=== PATIENT | male | born 1995 | race Caucasian/White ===

== ENCOUNTER 2017-11-02 22:55 | Emergency (ER) | payer SELFPAY ==
[2017-11-02 23:03] VITALS: RESP 20
--- NOTE | 2017-11-02 23:45 | C.PDOC ---
Time Seen by Provider: 11/02/17 23:01 Chief Complaint (Nursing): Substance Abuse History Per: Patient, EMS History/Exam Limitations: intoxication Onset/Duration Of Symptoms: Unknown Current Symptoms Are (Timing): Still Present Suicide/Self Injury Attempted (Context): None Modifying Factor(s): Other (PCP) Severity: Moderate Associated Symptoms: Agitation. denies: Suicidal Thoughts, Suicidal Plan Additional History Per: Prior Records, Law Enforcement Past Medical History Reviewed: Historical Data, Nursing Documentation, Vital Signs Vital Signs: Last Vital Signs Temp 98.5 F 11/02/17 23:02 Pulse 105 H 11/02/17 23:02 Resp 20 11/02/17 23:02 BP 112/73 11/02/17 23:02 Pulse Ox 96 11/02/17 23:02 - Medical History PMH: No Chronic Diseases Family History: States: Unknown Family Hx - Social History Hx Alcohol Use: No Hx Substance Use: Yes - Immunization History Hx Tetanus Toxoid Vaccination: Yes Hx Influenza Vaccination: Yes Hx Pneumococcal Vaccination: No Review Of Systems Review Of Systems: ROS cannot be obtained secondary to pt's inabilty to answer questions. Physical Exam - Physical Exam Appears: Non-toxic, No Acute Distress Skin: Normal Color, Warm, Dry, No Rash Head: Atraumatic, Normacephalic Eye(s): bilateral: PERRL, Other (Conjunctival injection. Vertical Nystagmus.) Neck: Normal ROM, No Midline Cervical Tenderness, No Step Off Deformity, Supple Chest: Symmetrical, No Deformity Cardiovascular: Rhythm Regular Respiratory: Normal Breath Sounds, No Accessory Muscle Use Gastrointestinal/Abdominal: Soft, No Tenderness Extremity: Normal ROM, No Deformity Neurological/Psych: Oriented x3, Normal Motor, Normal Sensation Gait: Steady ED Course And Treatment O2 Sat by Pulse Oximetry: 96 Pulse Ox Interpretation: Normal Progress Note: Pt is now calm and cooperative. Pt's family is here to pick him up and take him home. Reevaluation Time: 23:45 Reassessment Condition: Improved Disposition Counseled Patient/Family Regarding: Diagnosis, Need For Followup - Disposition Referrals: [facility] [Outside] Disposition: HOME/ ROUTINE Disposition Time: 23:46 Condition: IMPROVED Additional Instructions: Avoid illicit drugs. Follow up with your doctor or in the clinic. Return to the ER if you develop suicidal or homicidal thoughts, worsening of symptoms or if you have any other concerns. Instructions: Polysubstance Abuse (ED) - Clinical Impression Clinical Impression: PCP (phencyclidine) abuse
[2017-11-03 00:07] VITALS: BP 127/87; PULSE 72; TEMP 97.6; O2SAT 100
== END 2017-11-03 00:07 | disposition home or self-care (01) ==
LOC: C.ER 22:55
DX: F16.10 Hallucinogen abuse, uncomplicated (principal)

== ENCOUNTER 2017-11-23 10:31 | Emergency (ER) | payer SELFPAY ==
[2017-11-23 10:44] VITALS: BP 115/78; PULSE 69; RESP 18; TEMP 98.1; O2SAT 99
--- NOTE | 2017-11-23 11:13 | C.PDOC ---
History Of Present Illness 22 year old male with no significant PMHx presents to the ED with complaints of lower back pain for 2 days. patient reports while walking, he slipped and fell, hitting his lower back against a curb. Patient has been using ice packs for swelling and Ibuprofen for pain with minimal relief. Patient denies hematuria, dysuria, abdominal pain, fever, chills, weakness, numbness, or other complaints at this time. Time Seen by Provider: 11/23/17 10:40 Chief Complaint (Nursing): Back Pain History Per: Patient, Other (girlfriend) History/Exam Limitations: no limitations Onset/Duration Of Symptoms: Days (2 days) Current Symptoms Are (Timing): Still Present Quality Of Discomfort: "Pain" Previous Symptoms: None Associated Symptoms: None Exacerbating Factor(s): Movement Recent travel outside of the [place]: No Past Medical History Reviewed: Historical Data, Nursing Documentation, Vital Signs Vital Signs: Last Vital Signs Temp 98.1 F 11/23/17 10:37 Pulse 69 11/23/17 10:37 Resp 18 11/23/17 10:37 BP 115/78 11/23/17 10:37 Pulse Ox 99 11/23/17 11:21 Family History: States: Unknown Family Hx - Social History Hx Alcohol Use: No Hx Substance Use: Yes - Immunization History Hx Tetanus Toxoid Vaccination: Yes Hx Influenza Vaccination: Yes Hx Pneumococcal Vaccination: No Review Of Systems Constitutional: Negative for: Fever, Chills Cardiovascular: Negative for: Chest Pain, Palpitations Respiratory: Negative for: Cough, Shortness of Breath Gastrointestinal: Negative for: Nausea, Vomiting, Abdominal Pain Genitourinary: Negative for: Dysuria, Incontinence, Hematuria Musculoskeletal: Positive for: Back Pain (radiated to left thigh) Neurological: Negative for: Weakness, Numbness Physical Exam - Physical Exam Appears: Well, Non-toxic, No Acute Distress Skin: Warm, Dry, No Rash, No Ecchymosis Head: Atraumatic, Normacephalic, No Tenderness Eye(s): bilateral: Normal Inspection, PERRL, EOMI Oral Mucosa: Moist Neck: Normal ROM, No Midline Cervical Tenderness, No Paracervical Tenderness, Supple Chest: Symmetrical, No Deformity, No Tenderness Cardiovascular: Rhythm Regular, No Murmur Respiratory: No Rales, No Rhonchi, No Wheezing, Other (clear to auscultation bilaterally) Gastrointestinal/Abdominal: Soft, No Tenderness, No Distention, No Guarding, No Rebound Back: No Vertebral Tenderness, No Decreased ROM, Paraspinal Tenderness (left paralumbar tenderness) Extremity: Normal ROM, No Tenderness, No Calf Tenderness, Capillary Refill (<2 seconds), No Deformity, No Swelling, Other (no saddle anesthesia) Neurological/Psych: Oriented x3 ED Course And Treatment O2 Sat by Pulse Oximetry: 99 (RA) Pulse Ox Interpretation: Normal Progress Note: UA was ordered. Medical Decision Making Medical Decision Making: pt with left lower back pain s/p fall, hit back on curb. +left lumbar tenderness , no vertebral tenderness., abrasion to left lateral knee, no hematuria in ua. will d/c with nsaids, flexeril, tylenol. f/u pmd, Disposition Counseled Patient/Family Regarding: Diagnosis, Need For Followup, Rx Given - Disposition Referrals: Sujatha Montaño MD [Staff Provider] - Disposition: HOME/ ROUTINE Disposition Time: 11:58 Condition: IMPROVED Additional Instructions: Please take ibupforen and flexeril as [id number], Muscle relaxant makes you sleepy- no driving or operating machinery. Apply cold compresses or warm compresses, whatever feels best to you. No heavy lifting. Take lidoderm patch off at 11:30 pm tonight. Follow up with Dr Montaño in a few days. Return to ER for any worsening symptoms. Prescriptions: Acetaminophen [Tylenol 325mg tab] 650 mg PO Q6 #30 tab Cyclobenzaprine [Cyclobenzaprine HCl] 10 mg PO Q8 #9 tab Ibuprofen [Motrin] 600 mg PO TID #30 tab Instructions: Muscle Strain (ED) Forms: [facility] (Chadian), General Discharge Instructions - Clinical Impression Clinical Impression: Lumbar sprain - PA / [employer] / Resident Statement MD/DO has reviewed & agrees with the documentation as recorded. - Scribe Statement The provider has reviewed the documentation as recorded by the Luisibhaylee Mckeon All medical record entries made by the Scribe were at my direction and personally dictated by me. I have reviewed the chart and agree that the record accurately reflects my personal performance of the history, physical exam, medical decision making, and the department course for this patient. I have also personally directed, reviewed, and agree with the discharge instructions and disposition.
[2017-11-23] MEDS ORDERED: Bacitracin 500 Units/gm Oint Foilpak UD TOP ONE (11:14)
[2017-11-23 11:23] LABS: RBC URINE < 1 /hpf (0-3); URINE BILIRUBIN NEGATIVE (NEGATIVE); URINE BLOOD NEGATIVE (NEGATIVE); URINE COLOR Yellow (YELLOW); URINE GLUCOSE (UA) NORMAL (Normal); URINE KETONE NEGATIVE (NEGATIVE); URINE LEUKOCYTE ESTERASE NEG Leu/uL (Negative); URINE PROTEIN NEGATIVE (NEGATIVE); URINE UROBILINOGEN NORMAL mg/dL (0.2-1.0); WBC URINE 1 /hpf (0-5)
[2017-11-23] MEDS ORDERED: Lidocaine 5% Patch TD STA (11:25)
[2017-11-23] MEDS ORDERED: Lidocaine 5% Patch TD ONE (11:32)
[2017-11-23] MEDS ORDERED: Bacitracin 500 Units/gm Oint Foilpak UD ONE (11:32)
== END 2017-11-23 12:13 | disposition home or self-care (01) ==
LOC: C.ER 10:31
DX: S33.5XXA Sprain of ligaments of lumbar spine, initial encounter (principal); W01.198A Fall on same level from slipping, tripping and stumbling with subsequent striking against other object, initial encounter; Y93.01 Activity, walking, marching and hiking; Y92.480 Sidewalk as the place of occurrence of the external cause

== ENCOUNTER 2019-03-22 10:24 | Emergency (ER) | payer OTHER, SELFPAY ==
[2019-03-22 10:39] VITALS: BP 113/79; PULSE 95; RESP 18; TEMP 98.1; O2SAT 100
--- NOTE | 2019-03-22 10:59 | C.PDOC ---
History Of Present Illness 24-year-old male presents to the ED with mother for evaluation after sustaining a fall two days ago. Patient states he was crossing the street when he fell onto his bilateral elbows and right leg. Patient reports pain to his right thigh and trouble with walking. Patient has not taken any pain medication today. He denies head injury, LOC, extremity numbness/weakness. - HPI Time Seen by Provider: 03/22/19 10:44 Chief Complaint (Nursing): Trauma History Per: Patient History/Exam Limitations: no limitations Onset/Duration Of Symptoms: Days Location Of Injury: Right: Elbow, Thigh, Left: Elbow Additional History Per: Patient - Fall Fall:Prior To Injury: Tripped Past Medical History Reviewed: Historical Data, Nursing Documentation, Vital Signs Vital Signs: Last Vital Signs Temp 98.1 F 03/22/19 10:34 Pulse 95 H 03/22/19 10:34 Resp 18 03/22/19 10:34 BP 113/79 03/22/19 10:34 Pulse Ox 100 03/22/19 10:34 - Medical History PMH: No Chronic Diseases Surgical History: No Surg Hx Family History: States: Unknown Family Hx - Social History Hx Alcohol Use: No Hx Substance Use: Yes - Immunization History Hx Tetanus Toxoid Vaccination: Yes Hx Influenza Vaccination: Yes Hx Pneumococcal Vaccination: No Review Of Systems Musculoskeletal: Positive for: Other (bilateral elbow and right thigh pain ) Neurological: Negative for: Weakness, Numbness, Other (head injury, LOC ) Physical Exam - Physical Exam Appears: Non-toxic, No Acute Distress Skin: Normal Color, Warm, Dry, Other (abrasions to bilateral elbows, ecchymosis to right thigh. no active bleeding ) Head: Atraumatic, Normacephalic Eye(s): bilateral: Normal Inspection Oral Mucosa: Moist Neck: Normal ROM, Supple Chest: Symmetrical, No Deformity, No Tenderness Respiratory: No Accessory Muscle Use Extremity: Normal ROM, No Tenderness, Capillary Refill (less than 2 seconds ), No Swelling Neurological/Psych: Oriented x3, Normal Speech, Normal Cognition, Normal Motor, Normal Sensation Gait: Steady ED Course And Treatment O2 Sat by Pulse Oximetry: 100 (on RA) Pulse Ox Interpretation: Normal Progress Note: Patient is ambulatory and weight bearing. I offered XR and advised patient and mother that based on patient's history and physical exam findings, there is a low probability of a femur fracture. Patient and mother agree to no XR at this time. Disposition Counseled Patient/Family Regarding: Diagnosis, Need For Followup - Disposition Referrals: YOUR,PMD [Other] Disposition: HOME/ ROUTINE Disposition Time: 10:57 Condition: GOOD Prescriptions: Ibuprofen [Motrin] 600 mg PO Q6 #30 tab Mupirocin 2% Ointment [Bactroban Ointment] 1 appl TP TID #1 tube Instructions: Wound Care (DC), Contusion (DC) Forms: [facility] (Montserratian) - Clinical Impression Clinical Impression: Abrasions of multiple sites, Contusion - Scribe Statement The provider has reviewed the documentation as recorded by the Scribe (Jessica Parikh) Provider Attestation: All medical record entries made by the Scribe were at my direction and personally dictated by me. I have reviewed the chart and agree that the record accurately reflects my personal performance of the history, physical exam, medical decision making, and the department course for this patient. I have also personally directed, reviewed, and agree with the discharge instructions and disposition.
== END 2019-03-22 11:09 | disposition home or self-care (01) ==
LOC: C.ER 10:24
DX: S70.11XA Contusion of right thigh, initial encounter (principal); S50.312A Abrasion of left elbow, initial encounter; S50.311A Abrasion of right elbow, initial encounter; W01.0XXA Fall on same level from slipping, tripping and stumbling without subsequent striking against object, initial encounter; Y92.410 Unspecified street and highway as the place of occurrence of the external cause

== ENCOUNTER 2019-04-24 19:46 | Emergency (ER) | payer OTHER ==
[2019-04-24 20:01] VITALS: TEMP 99; O2SAT 98
--- NOTE | 2019-04-24 20:17 | C.PDOC ---
History Of Present Illness Hx limited due to clinical condition. 36 year old male, EMS called after he was noticed to have fallen down, possibly due to intoxication. Patient denies pain, ETOH, or drug use. He does not know why he is here or how he got here, does not have ID and does not know his social security number. Time Seen by Provider: 04/24/19 19:57 Chief Complaint (Nursing): Substance Abuse History Per: Patient, EMS History/Exam Limitations: clinical condition Onset/Duration Of Symptoms: Hrs Current Symptoms Are (Timing): Still Present Past Medical History Reviewed: Historical Data, Nursing Documentation, Vital Signs Vital Signs: Last Vital Signs Temp 99 F 04/24/19 19:48 Pulse 117 H 04/24/19 19:48 Resp 20 04/24/19 19:48 BP 140/99 H 04/24/19 19:48 Pulse Ox 98 04/24/19 19:48 Primary Care Provider: FAMILY PROVIDER,NO Family History: States: Unknown Family Hx - Social History Hx Alcohol Use: No (pt denies) Hx Substance Use: Yes Review Of Systems Except As Marked, All Systems Reviewed And Found Negative. Musculoskeletal: Negative for: Arm Pain Skin: Positive for: Other (Abrasion) Neurological: Negative for: Headache Physical Exam - Physical Exam Appears: Non-toxic, Other (Calm, Intoxicated, No active psychosis) Skin: Warm Head: Atraumatic, Normacephalic Eye(s): bilateral: Normal Inspection Oral Mucosa: Moist Neck: Normal, Supple Chest: Symmetrical, No Tenderness Cardiovascular: Rhythm Regular Respiratory: Normal Breath Sounds, No Rales, No Rhonchi, No Wheezing Gastrointestinal/Abdominal: Soft, No Tenderness Extremity: No Other (Right elbow abrasions) Neurological/Psych: Other (No focal deficit) ED Course And Treatment O2 Sat by Pulse Oximetry: 98 (Room air) Pulse Ox Interpretation: Normal Progress - Re-Evaluation Re-evaluation Note: 04/24/19 20:41 PT REFUSING LABS. REFUSING REPEAT VITALS. FATHER @ BEDSIDE, STATES IWLL TAKE PT HOME. AMBUL WO DIFF - Data Reviewed Data Reviewed: Lab Medical Decision Making Medical Decision Making: Blood work ordered. Disposition Counseled Patient/Family Regarding: Diagnosis - Disposition Disposition: HOME/ ROUTINE Disposition Time: 20:41 Condition: GOOD Forms: [facility] (Mongolian), General Discharge Instructions - Clinical Impression Clinical Impression: Intoxication - Scribe Statement The provider has reviewed the documentation as recorded by the Scribe Jean Claude Allen All medical record entries made by the Scribe were at my direction and personally dictated by me. I have reviewed the chart and agree that the record accurately reflects my personal performance of the history, physical exam, medical decision making, and the department course for this patient. I have also personally directed, reviewed, and agree with the discharge instructions and disposition.
[2019-04-24 20:59] VITALS: BP 140/95; PULSE 118; RESP 18
== END 2019-04-24 20:54 | disposition home or self-care (01) ==
LOC: EDBD 19:46 → C.ER 19:46 → MERGE 19:46 → C.ER 20:54
DX: F19.10 Other psychoactive substance abuse, uncomplicated (principal)